=== PATIENT | female | born 1955 | race Caucasian/White ===

== ENCOUNTER → 2024-01-06 | Outpatient (REF) | payer MEDICARE | LOC: M SFHCDERM 18:01 | PROVIDERS: ATTEND Nurse Practitioner Family | DX: L85.8 Other specified epidermal thickening (principal) ==

== ENCOUNTER → 2025-01-31 | Outpatient (REF) | payer MEDICARE | LOC: M LAB REF 17:28 | PROVIDERS: ATTEND Otolaryngology | DX: D10.39 Benign neoplasm of other parts of mouth (principal) ==